=== PATIENT | female | born 1985 | race Caucasian/White ===

== ENCOUNTER 2017-04-24 11:40 | Emergency (ER) | payer OTHER ==
[2017-04-24 11:49] VITALS: TEMP 98
--- NOTE | 2017-04-24 12:00 | C.PDOC ---
History Of Present Illness 32 y/o female, , visiting from [place] arrives with a friend in the ED with complaints of lower abdominal pain and spotting. The patient reports LMP was . The patient reports multiple positive home tests. The patient denies experiencing any symptoms of vomiting, nausea , headaches, dizziness, fever, chills. Time Seen by Provider: 04/24/17 11:54 Chief Complaint (Nursing): Abdominal Pain History Per: Patient History/Exam Limitations: language barrier Onset/Duration Of Symptoms: Hrs Current Symptoms Are (Timing): Still Present Quality Of Discomfort: "Pain". denies: Sharp, Cramping Associated Symptoms: denies: Fever, Chills, Nausea, Vomiting Exacerbating Factors: denies: Cough Abnormal Vaginal Bleeding: Yes Last Menstral Period: 03/17/17 : 3 Para: 0 Miscarriage: 2 Past Medical History Reviewed: Historical Data, Nursing Documentation, Vital Signs Vital Signs: Last Vital Signs Temp 98 F 04/24/17 11:43 Pulse 67 04/24/17 14:19 Resp 18 04/24/17 14:19 BP 101/66 04/24/17 14:19 Pulse Ox 100 04/24/17 14:19 - Medical History PMH: No Chronic Diseases Surgical History: Appendectomy Family History: States: No Known Family Hx - Social History Hx Alcohol Use: Yes Hx Substance Use: No - Immunization History Hx Tetanus Toxoid Vaccination: No Hx Influenza Vaccination: No Hx Pneumococcal Vaccination: No Review Of Systems Except As Marked, All Systems Reviewed And Found Negative. Constitutional: Negative for: Fever, Chills, Sweats Cardiovascular: Negative for: Light Headedness Respiratory: Negative for: Cough, Shortness of Breath Gastrointestinal: Positive for: Abdominal Pain. Negative for: Nausea, Vomiting , Diarrhea, Constipation Genitourinary: Positive for: Vaginal Bleeding (light spotting). Negative for: Dysuria Skin: Negative for: Rash Neurological: Negative for: Headache Physical Exam - Physical Exam Appears: Non-toxic, No Acute Distress Skin: Normal Color, Warm, Dry Head: Atraumatic, Normacephalic Oral Mucosa: Moist Throat: Normal, No Erythema, No Exudate Chest: Symmetrical Cardiovascular: Rhythm Regular Respiratory: Normal Breath Sounds Gastrointestinal/Abdominal: No Normal Exam, Soft, Tenderness (lower abdominal ) , No Guarding, No Rebound Extremity: Normal ROM, Capillary Refill (<2 sec.) Neurological/Psych: Oriented x3, Normal Speech, Normal Cognition Gait: Steady ED Course And Treatment - Laboratory Results Result Diagrams: 04/24/17 12:21 04/24/17 12:21 Lab Interpretation: Normal Urine POC: Positive O2 Sat by Pulse Oximetry: 99 (RA) Pulse Ox Interpretation: Normal - CT Scan/US No standard instances Other Rad Studies (CT/US): Read By Radiologist, Radiology Report Reviewed CT/US Interpretation: Findings: The uterus measures approximately 6.4 x 4.1 x 4.7 cm. Anteverted. Probable mid right uterine fibroid measures approximately 0.8 x 0.9 x 1.1 cm. There is a single intrauterine fetus present. The gestational sac measures 1.4 cm and is compatible with a gestational age of 5 weeks 4 days. 1 mm yolk sac. pole is not identified. Small probable subchorionic hemorrhage. The right ovary measures 2.3 x 1.1 x 2.6 cm. The left ovary measures 3.4 x 2.1 x 2.6 cm. Blood flow is demonstrated to the left ovary. Blood flow was not demonstrated to the right ovary, likely due to technical difficulties due to ovarian position. The cervix was not well visualized. Small pelvic free fluid. Impression: Intrauterine gestational sac compatible with gestational age 5 weeks 4 days. 1 mm yolk sac. pole is not identified. Small probable subchorionic hemorrhage. Mid right uterine fibroid measures approximately 1.1 cm. Blood flow was not demonstrated to the right ovary, likely due to technical difficulties due to ovarian position. Small pelvic free fluid. Advise an anomaly screen at 16-18 weeks gestational age. Progress Note: Labs, UA, Upreg, ultrasound ordered and reviewed. On re- evaluation abdomen soft non-tender Reassessment Condition: Unchanged Disposition Counseled Patient/Family Regarding: Studies Performed, Diagnosis, Need For Followup - Disposition Referrals: [facility] [Outside] [facility] [Outside] Disposition: HOME/ ROUTINE Disposition Time: 14:20 Condition: STABLE Additional Instructions: Return to ED if any increase symptoms Instructions: Threatened Miscarriage (ED) Forms: [employer] Connect (Arabic) - POA Present On Arrival: None - Clinical Impression Clinical Impression: Threatened in early - PA / ICE CARVER / Resident Statement MD/DO has reviewed & agrees with the documentation as recorded. - Scribe Statement The provider has reviewed the documentation as recorded by the Scribe (Rosalinda Rhodes) All medical record entries made by the Scribe were at my direction and personally dictated by me. I have reviewed the chart and agree that the record accurately reflects my personal performance of the history, physical exam, medical decision making, and the department course for this patient. I have also personally directed, reviewed, and agree with the discharge instructions and disposition.
[2017-04-24 12:18] LABS: RBC URINE 1 /hpf (0-3); URINE BILIRUBIN NEGATIVE (NEGATIVE); URINE BLOOD 2+ (NEGATIVE); URINE COLOR Yellow (YELLOW); URINE GLUCOSE (UA) NORMAL (Normal); URINE KETONE TRACE mg/dL (NEGATIVE); URINE LEUKOCYTE ESTERASE NEG Leu/uL (Negative); URINE PROTEIN NEGATIVE (NEGATIVE); URINE UROBILINOGEN NORMAL mg/dL (0.2-1.0); WBC URINE 1 /hpf (0-5)
[2017-04-24 12:29] LABS: BASO # 0.1 K/uL (0.0-0.2); BASO % 1.1 % (0.0-2.0); EOS # 0.1 K/uL (0.0-0.7); EOS % 1.1 % (0.0-4.0); LYMPH # 2.4 K/uL (1.0-4.3); LYMPH % 21.6 % (20.0-40.0); MEAN CELL VOLUME 87.9 fL (81.0-99.0); MEAN CORPUSCULAR HEMOGLOBIN 29.4 pg (27.0-31.0); MEAN CORPUSCULAR HGB CONC 33.5 g/dL (33.0-37.0); MEAN PLATELET VOLUME 8.2 fL (7.2-11.7); MONO # 0.8 K/uL (0.0-0.8); MONO % 7.2 % (0.0-10.0); RED CELL DISTRIBUTION WIDTH 12.5 % (11.5-14.5)
[2017-04-24 12:35] LABS: CHLORIDE 102 mmol/L (98-107); POTASSIUM 3.7 mmol/L (3.6-5.2); SODIUM 138 mmol/L (132-148)
[2017-04-24 12:38] LABS: BLOOD UREA NITROGEN 9 mg/dL (7-17); CARBON DIOXIDE 23 mmol/L (22-30); GFR AFRICAN-AMERICAN > 60
[2017-04-24 12:39] LABS: GLUCOSE,RANDOM 91 mg/dL (65-105)
--- NOTE | 2017-04-24 14:04 | US ---
Indication: Bleeding Comparison: None available. Technique: Transvaginal pelvic ultrasound. Findings: The uterus measures approximately 6.4 x 4.1 x 4.7 cm. Anteverted. Probable mid right uterine fibroid measures approximately 0.8 x 0.9 x 1.1 cm. There is a single intrauterine fetus present. The gestational sac measures 1.4 cm and is compatible with a gestational age of 5 weeks 4 days. 1 mm yolk sac. pole is not identified. Small probable subchorionic hemorrhage. The right ovary measures 2.3 x 1.1 x 2.6 cm. The left ovary measures 3.4 x 2.1 x 2.6 cm. Blood flow is demonstrated to the left ovary. Blood flow was not demonstrated to the right ovary, likely due to technical difficulties due to ovarian position. The cervix was not well visualized. Small pelvic free fluid. Impression: Intrauterine gestational sac compatible with gestational age 5 weeks 4 days. 1 mm yolk sac. pole is not identified. Small probable subchorionic hemorrhage. Mid right uterine fibroid measures approximately 1.1 cm. Blood flow was not demonstrated to the right ovary, likely due to technical difficulties due to ovarian position. Small pelvic free fluid. Advise an anomaly screen at 16-18 weeks gestational age.
[2017-04-24 14:20] VITALS: BP 101/66; PULSE 67; RESP 18
[2017-04-24 17:35] VITALS: O2SAT 99
== END 2017-04-24 14:20 | disposition home or self-care (01) ==
LOC: C.ER 11:40
DX: O20.0 Threatened abortion (principal); Z3A.01 Less than 8 weeks gestation of pregnancy